=== PATIENT | male | born 1960 | race Caucasian/White ===

== ENCOUNTER 2017-08-23 06:20 | Emergency (ER) | payer OTHER ==
[~2017-08-23] VITALS: Ht 165.1 cm; Wt 107.5 kg
[2017-08-23 06:29] VITALS: BP 164/102
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
[2017-08-23] MEDS ORDERED: DIPHTH,PERTUSS(ACELL),TET TOX 0.5 ML DISP.SYRIN. VAX IM ONE (07:45)
[2017-08-23] MEDS ORDERED: MUPIROCIN 2% TOPICAL OINTMENT 22GM TUBE. TP ONE (07:45)
[2017-08-23] MEDS ORDERED: CLINDAMYCIN HCL 150 MG CAPSULE PO ONE (07:45)
== END 2017-08-23 07:45 | disposition home or self-care (01) ==
LOC: ER 06:20
DX: S00.81XA Abrasion of other part of head, initial encounter (principal); R51 Headache; M54.2 Cervicalgia; E11.9 Type 2 diabetes mellitus without complications; E78.5 Hyperlipidemia, unspecified; I10 Essential (primary) hypertension; Y04.0XXA Assault by unarmed brawl or fight, initial encounter; Y93.89 Activity, other specified; Y99.8 Other external cause status; Y92.89 Other specified places as the place of occurrence of the external cause
CPT/HCPCS: 90471; 90715; 99283-25

== ENCOUNTER → 2018-01-16 | Outpatient (CLI) | payer OTHER ==
[~2018-01-16] MED LIST: IOHEXOL 240 MG/ML 50ML VIAL. ONE; IOHEXOL 240 MG/ML 50ML VIAL. PO ONE; IOHEXOL 300 MG/ML 75 ML VIAL. IV ONE
--- NOTE | 2018-01-16 12:08 | RAD ---
CT ABD PELV W/ORAL IV CONTRAST Indication: left side pain for 2 days, getting worse
Omni 300 75cc Omni 240 30cc Exposure: One or more of the following individualized dose reduction techniques were utilized for this examination: 1. Automated exposure control 2. Adjustment of the mA and/or kV according to patient size 3. Use of iterative reconstruction technique. Comparison: None are available. Contrast: Intravenous contrast was given. Oral contrast was given. FINDINGS: Lower thorax: Lung bases are clear. Liver: Unremarkable Spleen: Unremarkable Pancreas: Unremarkable Adrenals:No evidence of mass. Kidneys:Unremarkable Gallbladder: No calcified stone Lymph nodes: No significant enlargement Vessels: * Aorta: Ectatic with atherosclerotic calcification. No evidence of aneurysm. * Mesenteric: Patent * Portal venous: Patent GI tract: No bowel obstruction. Wall thickening of the descending colon with adjacent inflammatory stranding and fascial thickening. No evidence of abscess. No regional free gas. Diverticulosis identified. Appendix is normal. Reproductive organs:No evidence of mass. Urinary bladder: Unremarkable. Peritoneum: No evidence of pneumoperitoneum. No free fluid. Abdominal wall:Unremarkable Spine: Degenerative spondylosis. Mild anterior wedging of T12 vertebral body, indeterminate age, likely chronic. Bones: Degenerative changes of the hips. IMPRESSION: Abnormal segment of mid descending colon, most compatible with acute colitis, in particular diverticulitis. No evidence of abscess. Consider follow-up imaging or colonoscopy after acute treatment to exclude pre-existing lesion here. Electronically signed by: Adrián Johnson MD (01/16/2018 12:05 PM) [id number]
== END | disposition home or self-care (01) ==
LOC: CT 10:03
PROVIDERS: ATTEND Family Medicine
DX: K57.90 Diverticulosis of intestine, part unspecified, without perforation or abscess without bleeding (principal); I77.811 Abdominal aortic ectasia; I70.0 Atherosclerosis of aorta; M47.894 Other spondylosis, thoracic region
CPT/HCPCS: 74177; Q9966; Q9967

== ENCOUNTER 2021-03-27 07:53 | Emergency (ER) | payer OTHER ==
[~2021-03-27] VITALS: Ht 165.1 cm; Wt 100.0 kg
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
[2021-03-27] MEDS ORDERED: ASPIRIN CHEWABLE 81 MG TABLET. PO ONE (08:45)
[2021-03-27 08:52] LABS: BASO % 0 % (0-3); EOS # 0.3 x10^3/uL (0.0-0.7); EOS % 5 % (0-3); HEMATOCRIT 38.7 % (39.0-53.0); HEMOGLOBIN 13.5 g/dL (13.0-17.5); LYMPH # 1.7 x10^3/uL (1.0-4.8); LYMPH % 24 % (24-48); MEAN CORPUSCULAR HEMOGLOBIN 32 pg (25-35); MEAN CORPUSCULAR HGB CONC 35 g/dL (31-37); MEAN CORPUSCULAR VOLUME 92 fL (79-100); MONO # 0.7 x10^3/uL (0.0-1.1); MONO % 10 % (0-9); NEUT # 4.2 x10^3uL (1.8-7.7); NEUT % 61 % (31-73); PLATELET COUNT 189 x10^3/uL (140-400); RED BLOOD COUNT 4.21 x10^6/uL (4.30-5.70); RED CELL DISTRIBUTION WIDTH 13.6 % (11.5-14.5)
[2021-03-27 08:53] LABS: CREATININE 1.1 mg/dL (0.7-1.3); GFR 68.3
--- NOTE | 2021-03-27 08:54 | EKG ---
[address] [address] Test Date: 2021-03-27 Test Time: 07:57:51 Pat Name: NASIR BURCIAGA Department: Room: Gender: M Audiovisual Technician: : 1960 Requested By: MARGIE BRAUN Order Number: [id number] Reading MD: Measurements Intervals [place] Rate: 82 P: 0 AK: 134 QRS: 19 QRSD: 82 T: 8 QT: 358 QTc: 421 Interpretive Statements SINUS RHYTHM NORMAL ECG RI6.02 No previous ECG available for comparison
[2021-03-27 08:59] LABS: ALBUMIN 4.3 g/dL (3.4-5.0); ALBUMIN/GLOBULIN RATIO 1.4 (1.0-1.7); TOTAL BILIRUBIN 0.7 mg/dL (0.2-1.0); TOTAL PROTEIN 7.4 g/dL (6.4-8.2)
--- NOTE | 2021-03-27 09:08 | RAD ---
EXAM: Chest, single view. HISTORY: Chest pain. COMPARISON: None. FINDINGS: A frontal view of the chest is obtained. There is no infiltrate, pleural effusion or pneumo thorax. The heart is normal in size. There is incidental cervical spinal fusion instrumentation at th e superior margin of the [id number]. IMPRESSION: No acute pulmonary finding. Electronically signed by: Martine Triana MD (03/27/2021 9:05 AM) [id number]
[2021-03-27 11:06] VITALS: BP 124/81
--- NOTE | 2021-03-27 12:08 | EKG ---
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
== END 2021-03-27 11:11 | disposition home or self-care (01) ==
LOC: ER 07:53
DX: R07.89 Other chest pain (principal); R20.0 Anesthesia of skin; E11.9 Type 2 diabetes mellitus without complications; E78.00 Pure hypercholesterolemia, unspecified; I10 Essential (primary) hypertension; Z86.73 Personal history of transient ischemic attack (TIA), and cerebral infarction without residual deficits
CPT/HCPCS: 36415; 71045; 80053; 84484; 85025; 93005; 99285